=== PATIENT | male | born 1970 | race Caucasian/White ===

== ENCOUNTER 2017-11-13 11:03 | Emergency (ER) | payer OTHER ==
[~2017-11-13] VITALS: Ht 180.3 cm; Wt 77.1 kg
== END 2017-11-13 14:33 | disposition home or self-care (01) ==
LOC: ER 11:03
DX: M62.838 Other muscle spasm (principal); M25.511 Pain in right shoulder

== ENCOUNTER 2024-07-26 07:35 | Day surgery (SDC) | payer OTHER ==
[2024-07-23 10:38] LABS: PH,URINE 5.5 (5.0-8.0); URINE APPEARANCE Clear; URINE BILIRRUBIN Negative (NEGATIVE); URINE BLOOD Negative; URINE COLOR Yellow; URINE GLUCOSE Negative (NEGATIVE); URINE KETONE Negative (NEGATIVE); URINE LEUKOCYTE Negative; URINE NITRATE Negative; URINE PROTEIN Negative (NEGATIVE); URINE UROBILINOGEN 0.2 E.U./dl
[2024-07-23 10:41] LABS: URINE BACTERIA 0 uL (0.0-1933); URINE EPITHELIAL CELLS 0.9 uL (0.0-38.8); URINE WBC 1.4 uL (0.0-23.2)
[2024-07-23 11:01] LABS: HEMATOCRIT 46.9 % (39.0-48.0); HEMOGLOBIN 16.4 g/dL (13-16.00); MEAN CORPUSCULAR HEMOGLOBIN 30.4 pg (27.00-32.0); PLATELET COUNT 179 K/uL (150-450); RED BLOOD COUNT 5.39 M/uL (4.00-6.00)
[2024-07-23 11:18] LABS: INR 1.01; PARTIAL THROMBOPLASTIN TIME 26.9 SECONDS (22.0-34.0)
[2024-07-23 11:49] LABS: CALCIUM 9.2 mg/dL (8.5-10.1); CREATININE SERUM 1.02 mg/dL (0.70-1.30); GFR 76.69; POTASSIUM 4.35 mEq/L (3.5-5.1)
[~2024-07-26 07:35] MED LIST: ADDERALL 10 MG10 MG PO
[2024-07-26] MEDS ORDERED: KETO10TA2 PO (08:23)
[2024-07-26] MEDS ORDERED: TYLENOL ARTHRI650 MG PO (08:23)
[2024-07-26] MEDS ORDERED: TRAMADOL HCL50 MG PO (08:23)
[2024-07-26] MEDS ORDERED: MIRALAX17 GM PO (08:23)
[2024-07-26] MEDS ORDERED: BUPIVACAINE HCL/MPF 0.5% 30ML VIAL ONE (11:39)
[2024-07-26] MEDS ORDERED: CEFAZOLIN SODIUM 1,000 MG VIAL ONE (11:39)
[2024-07-26] MEDS ORDERED: LIDOCAINE HCL 1%/EPINEPHRINE 20ML VIAL IJ ONE (13:00)
== END 2024-07-26 17:25 | disposition home or self-care (01) ==
LOC: CIR.AMB 07:35
PROVIDERS: ATTEND Surgery
DX: K40.20 Bilateral inguinal hernia, without obstruction or gangrene, not specified as recurrent (principal); K42.0 Umbilical hernia with obstruction, without gangrene; Z88.6 Allergy status to analgesic agent; Z91.09 Other allergy status, other than to drugs and biological substances
CPT/HCPCS: 49650; 49592; C1781